=== PATIENT | female | born 1955 | race Caucasian/White ===

== ENCOUNTER 2017-03-20 08:28 | Day surgery (SDC) | payer OTHER ==
[2017-03-19 18:21] VITALS: BMI 31.3
[~2017-03-20 08:28] MED LIST: ACETAMINOPHEN 325 MG TABLET (FP) PO PRN
[2017-03-20] MEDS: PHENYLEPHRINE 2.5% OPHTH SOLN 15 ML BOTTLE OP SCH ×3 (09:00→09:40)
[2017-03-20] MEDS: CYCLOPENTOLATE HCL 1% OPHTH SOLN 2 ML BOTTLE OP SCH ×3 (09:00→09:39)
[2017-03-20] MEDS: TROPICAMIDE 1% OPHTH SOLN 15 ML BOTTLE OP SCH ×3 (09:00→09:40)
[2017-03-20] MEDS: CIPROFLOXACIN HCL 0.3% OPHTH 2.5ML BOTTLE OP SCH ×3 (09:00→09:39)
[2017-03-20] MEDS: FLURBIPROFEN 0.03% OPHTH SOLN 2.5 ML BOTTLE OP SCH ×3 (09:00→09:40)
[2017-03-20 09:04] VITALS: TEMP 98
[2017-03-20] MEDS ORDERED: PHENYLEPHRINE 2.5% OPHTH SOLN 15 ML BOTTLE ONE (09:11)
[2017-03-20] MEDS ORDERED: CYCLOPENTOLATE HCL 1% OPHTH SOLN 2 ML BOTTLE ONE (09:11)
[2017-03-20] MEDS ORDERED: CIPROFLOXACIN 0.3% EYE DROPS 5 ML BOTTLE ONE (09:11)
[2017-03-20] MEDS ORDERED: FLURBIPROFEN 0.03% OPHTH SOLN 2.5 ML BOTTLE ONE (09:11)
[2017-03-20] MEDS ORDERED: TROPICAMIDE 1% OPHTH SOLN 15 ML BOTTLE ONE (09:11)
[2017-03-20] MEDS ORDERED: MIDAZOLAM HCL 2 MG/2 ML SINGLE DOSE VIAL ONE (09:28)
[2017-03-20] MEDS ORDERED: EPINEPHrine/PF 1 MG/1 ML (1:1,000) AMPULE ONE (09:30)
[2017-03-20] MEDS ORDERED: LIDOCAINE HCL 2% JELLY (5 ML/TUBE) ONE (09:31)
[2017-03-20] MEDS ORDERED: BUPIVACAINE HCL/PF 0.75% 10 ML VIAL ONE (09:31)
[2017-03-20] MEDS ORDERED: LIDOCAINE HCL/PF 2% SDV 5ML VIAL ONE ×2 (09:31→09:48)
[2017-03-20] MEDS ORDERED: PROPOFOL 20 ML ONE (09:48)
[2017-03-20] MEDS ORDERED: LIDOCAINE HCL/PF 2% SDV 5ML VIAL INF ONE ×2 (09:49→09:50)
[2017-03-20] MEDS ORDERED: BUPIVACAINE HCL/PF 0.75% 10 ML VIAL RB ONE (09:49)
[2017-03-20] MEDS ORDERED: BUPIVACAINE HCL/PF 0.75% 10 ML VIAL PNB ONE (09:50)
[2017-03-20] MEDS ORDERED: LIDOCAINE HCL 1% PRESERVATIVE FREE - 30ML VIAL IO ONE (10:01)
[2017-03-20] MEDS ORDERED: CHONDROITIN SU A/HYALUR SOD 1 KIT IO ONE (10:02)
[2017-03-20] MEDS ORDERED: MANNITOL 25% 12.5 GM/50 ML VIAL IVPB ONE (10:04)
[2017-03-20 11:51] VITALS: BP 138/93; PULSE 53
--- NOTE | 2017-03-20 12:33 | SPEC ---
DATE OF OPERATION: 03/20/2017 PREOPERATIVE DIAGNOSIS: Cataract, left eye. POSTOPERATIVE DIAGNOSIS: Cataract, left eye. OPERATION: Phacoemulsification of left cataract with posterior chamber intraocular lens implantation. Lens used SN60AT, 21.5 Diopter power, Serial No. [id number]. SURGEON: Roge Peter M.D. ANESTHESIA: Peribulbar/Modified Van Lint/MAC. COMPLICATIONS: None. PROCEDURE: The patient was brought to the operating room and correctly identified along with the operative site and a correct intraocular lens patterson. The patient was then given a peribulbar block under sedation with 5 mL of a 1:1 mixture of 2% Lidocaine and 0.5% Bupivacaine. Two to 3 mL of the same mixture was given as a modified Van Lint block. The eye was then prepped and draped in the usual sterile fashion including 5% Betadine solution in the conjunctival sac and an eyelid drape. An eyelid speculum was then placed into the eye. A paracentesis port was created. Viscoelastic was injected to inflate the anterior chamber. A temporal clear corneal wound was created. A continuous circular capsulorrhexis was performed. The nucleus was then hydro-dissected and removed phacoemulsification via the [id number] approach. The remaining cortical material was irrigated and aspirated from the eye. Viscoelastic was injected to inflate the capsular bag. The lens was injected into the capsular bag. Viscoelastic was then irrigated and aspirated from the eye. The intraocular lens was noted to be well centered and covered by the anterior capsular border. All wounds were found to be watertight. Topical Vancomycin was given. The eye patch and shield were placed. The patient was discharged from the operating room in stable condition. Rebeca [id number]
== END 2017-03-20 11:58 | disposition home or self-care (01) ==
LOC: JASU-SURG 08:28
PROVIDERS: ATTEND Ophthalmology
PROC: 08RK3JZ Replacement of Left Lens with Synthetic Substitute, Percutaneous Approach (ICD-10-PCS; principal; 2017-03-20 10:00)
DX: H26.9 Unspecified cataract (principal)

== ENCOUNTER 2017-03-31 08:22 | Emergency (ER) | payer OTHER ==
[2017-03-31 08:27] VITALS: BP 155/98; PULSE 83; TEMP 98.4; BMI 31.3
--- NOTE | 2017-03-31 09:49 | PDOC ---
History of Present Illness - General Chief Complaint: Sore Throat Stated Complaint: THROAT PAIN Time Seen by Provider: 03/31/17 09:14 History Source: Patient Exam Limitations: No Limitations - History of Present Illness Initial Comments: 03/31/17 10:34 Chief complaint: Sore throat and asthma Patient is 62-year-old female with a history of hypothyroid and asthma who states that for 2 days she has a sore throat, difficulty swallowing, and her asthma has been bothering her a little bit. No history of diabetes and is nonsmoker. Patient has not been using any asthma medication as she has none and has not had a problem in quite a while. No shortness of breath or fever. Patient is able to eat and drink, but is painful GENERAL/CONSTITUTIONAL: No fever, weakness. dizziness HEAD, EYES, EARS, NOSE AND THROAT: No change in vision. No ear pain or discharge. +sore throat. CARDIOVASCULAR: No chest pain RESPIRATORY: No shortness of breath or cough, + wheezing GASTROINTESTINAL: No pain, nausea, vomiting, diarrhea or constipation GENITOURINARY: No dysuria MUSCULOSKELETAL: No neck or back pain SKIN: No rash NEUROLOGIC: No headache, vertigo, loss of consciousness, or loss of sensation. GENERAL: The patient is awake, alert, and fully oriented, in no acute distress. HEAD: Normal with no signs of trauma. EYES: Pupils equal, round and reactive to light, sclera anicteric, conjunctiva clear. ENT: pharynx: +erythema, no exudate, uvula midline, voice normal NECK: supple CHEST: Scant intermittent wheeze, no respiratory distress, speaks in full sentences, nontender, rr ABD: soft, nontender EXTREMITIES: Normal range of motion, no edema. NEUROLOGICAL: Normal speech, normal gait. SKIN: Warm, Dry Past History - Past Medical History Allergies/Adverse Reactions: Allergies Allergy/AdvReac Type Severity Reaction Status Date / Time No Known Allergies Allergy Verified 03/31/17 08:27 Home Medications: Ambulatory Orders Levothyroxine [Synthroid -] 75 mcg PO DAILY 10/16/16 Omeprazole 40 mg PO DAILY 10/16/16 Cholecalciferol (Vitamin D3) [Vitamin D3] 400 unit PO DAILY 03/19/17 Ibuprofen 800 mg PO PRN PRN 03/19/17 Albuterol Sulfate Inhaler - [Ventolin HFA Inhaler -] 2 inh PO Q6H #1 inh Amoxicillin - [Amoxicillin 875mg Tablet -] 875 mg PO BID #20 tablet 03/31/17 Asthma: Yes GI Disorders: Yes (GASTRITIS) Thyroid Disease: Yes - Surgical History Abdominal Surgery: Yes (tummy tuck) - Immunization History Immunization Up to Date: Yes - Psycho/Social/Smoking Cessation Hx Anxiety: No Suicidal Ideation: No Smoking Status: No Smoking History: Never smoked Have you smoked in the past 12 months: No Number of Cigarettes Smoked Daily: 0 Hx Alcohol Use: No Drug/Substance Use Hx: No Substance Use Type: None Hx Substance Use Treatment: No *Physical Exam - Vital Signs Last Vital Signs Temp Pulse Resp BP Pulse Ox 98.4 F 83 20 155/98 97 03/31/17 08:25 03/31/17 08:25 03/31/17 08:25 03/31/17 08:25 03/31/17 08:25 Medical Decision Making - Medical Decision Making 03/31/17 10:50 Patient with 2 days of sore throat with erythema to the throat area, no signs of abscess, able to eat injuring can has normal voice but painful to swallow. Also with scant wheeze on and off. Patient in no respiratory distress no fever. Patient will be prescribed albuterol for the wheezing, no indication to start on steroids. And will be given amoxicillin given the clinical findings to the throat, and patient's age. No other signs to indicate this is related to ALLERGIES. Discussed issues, findings, results, applicable medications and treatments and follow-up. All these were understood and all questions were answered *DC/Admit/Observation/Transfer Diagnosis at time of Disposition: Pharyngitis Qualifiers: Pharyngitis/tonsillitis etiology: unspecified etiology Qualified Code(s): J02.9 - Acute pharyngitis, unspecified Asthma Qualifiers: Asthma severity: unspecified severity Asthma complication type: uncomplicated Qualified Code(s): J45.909 - Unspecified asthma, uncomplicated - Discharge Dispostion Disposition: HOME Condition at time of disposition: Stable - Prescriptions Prescriptions: Amoxicillin - [Amoxicillin 875mg Tablet -] 875 mg PO BID #20 tablet Albuterol Sulfate Inhaler - [Ventolin HFA Inhaler -] 2 inh PO Q6H #1 inh - Patient Instructions Printed Discharge Instructions: Sore Throat, DI for Asthma -- Adult Additional Instructions: Drink 2-3 L of water daily take the amoxicillin one tablet every 12 hours for 10 days use the albuterol inhaler 2 puffs 4 times daily as needed Take Tylenol 650 mg every 4 hours for fever and pain Return to the nearest ER if short of breath, unable to swallow or feeling sicker Followup with your doctor in one to 2 days
== END 2017-03-31 09:58 | disposition home or self-care (01) ==
LOC: JERFT 08:22
DX: J02.9 Acute pharyngitis, unspecified (principal); J45.909 Unspecified asthma, uncomplicated; E03.9 Hypothyroidism, unspecified
CPT/HCPCS: 99281-25

== ENCOUNTER 2017-04-24 06:26 | Day surgery (SDC) | payer OTHER ==
[2017-04-22 15:06] VITALS: BMI 31.3
[2017-04-24 06:55] VITALS: TEMP 98
[2017-04-24] MEDS: FLURBIPROFEN 0.03% OPHTH SOLN 2.5 ML BOTTLE ONE ×3 (07:00→07:10)
[2017-04-24] MEDS: TROPICAMIDE 1% OPHTH SOLN 15 ML BOTTLE ONE ×3 (07:00→07:10)
[2017-04-24] MEDS: CIPROFLOXACIN 0.3% EYE DROPS 5 ML BOTTLE ONE ×3 (07:00→07:10)
[2017-04-24] MEDS: CYCLOPENTOLATE HCL 1% OPHTH SOLN 2 ML BOTTLE ONE ×3 (07:00→07:10)
[2017-04-24] MEDS: PHENYLEPHRINE 2.5% OPHTH SOLN 15 ML BOTTLE ONE ×3 (07:00→07:10)
[2017-04-24] MEDS ORDERED: MIDAZOLAM HCL 2 MG/2 ML SINGLE DOSE VIAL ONE (08:31)
[2017-04-24] MEDS ORDERED: BUPIVACAINE HCL/PF 0.75% 10 ML VIAL PNB ONE (08:39)
[2017-04-24] MEDS ORDERED: LIDOCAINE HCL/PF 2% SDV 5ML VIAL PNB ONE (08:39)
[2017-04-24] MEDS ORDERED: KETAMINE HCL 200 MG/20 ML VIAL ONE (08:50)
[2017-04-24] MEDS ORDERED: LIDOCAINE HCL 1% PRESERVATIVE FREE - 30ML VIAL IO ONE (08:50)
[2017-04-24] MEDS ORDERED: CHONDROITIN SU A/HYALUR SOD 1 KIT IO ONE (08:51)
[2017-04-24 10:03] VITALS: BP 130/76; PULSE 56
--- NOTE | 2017-04-24 14:22 | SPEC ---
DATE OF OPERATION: 04/24/2017 OPERATION: Phacoemulsification of right cataract with posterior chamber intraocular lens implantation. Lens used [id number], 22.5 diopter power, serial No. [id number]. PREOPERATIVE DIAGNOSIS: Cataract, right eye. POSTOPERATIVE DIAGNOSIS: Cataract, right eye. SURGEON: Melissa Etienne M.D. ANESTHESIA: Peribulbar/modified van Lint/MAC. COMPLICATIONS: None. PROCEDURE: The patient was brought to the operating room and correctly identified along with the operative site and a correct intraocular lens patterson. The patient was then given a peribulbar block under sedation with 5 mL of a 1:1 mixture of 2% lidocaine and 0.5% bupivacaine. Two to 3 mL of the same mixture was given as a modified van Lint block. The eye was then prepped and draped in the usual sterile fashion including 5% Betadine solution in the conjunctival sac and an eyelid drape. An eyelid speculum was then placed into the eye. A paracentesis port was created. Viscoelastic was injected to inflate the anterior chamber. A temporal clear corneal wound was created. A continuous circular capsulorrhexis was performed. The nucleus was then hydro-dissected and removed phacoemulsification via the [id number] approach. The remaining cortical material was irrigated and aspirated from the eye. Viscoelastic was injected to inflate the capsular bag. The lens was injected into the capsular bag. Viscoelastic was then irrigated and aspirated from the eye. The intraocular lens was noted to be well centered and covered by the anterior capsular border. All wounds were found to be watertight. Topical vancomycin was given. The eye patch and shield were placed. The patient was discharged from the operating room in stable condition. MELISSA ETIENNE M.D. [id number]
== END 2017-04-24 10:15 | disposition home or self-care (01) ==
LOC: JASU-SURG 06:26
PROVIDERS: ATTEND Ophthalmology
PROC: 08RJ3JZ Replacement of Right Lens with Synthetic Substitute, Percutaneous Approach (ICD-10-PCS; principal; 2017-04-24 08:00)
DX: H26.9 Unspecified cataract (principal)

== ENCOUNTER 2018-08-09 15:12 | Emergency (ER) | payer OTHER ==
[2018-08-09 15:27] VITALS: TEMP 98.3; BMI 29.6
--- NOTE | 2018-08-09 16:03 | PDOC ---
Attending Attestation - Resident Resident Name: Manny Mace - ED Attending Attestation I have performed the following: I have examined & evaluated the patient, The case was reviewed & discussed with the resident, I agree w/resident's findings & plan, Exceptions are as noted - HPI HPI: 08/09/18 15:59 Ms Mondragon Is a 63-year-old female with a history of hypertension who presents emergency department with a complaint of elevated blood pressure. She denies headache at this point but does have a history of chronic headaches. She denies chest pain. She denies shortness of breath. She denies palpitations. - Physicial Exam PE: 08/09/18 16:01 GENERAL: The patient is in no acute distress. LUNGS: Breath sounds equal, clear to auscultation bilaterally. No wheezes, and no crackles. HEART:Regular rate and rhythm, normal S1 and S2 without murmur, rub or gallop. ABDOMEN: Soft, nontender, normoactive bowel sounds. No guarding, no rebound. No masses palpable. EXTREMITIES: Normal range of motion, no edema. NEUROLOGICAL: Cranial nerves II through XII grossly intact. Normal speech. No focal neurological deficits. MUSCULOSKELETAL: Back non-tender to palpation SKIN: Warm, Dry, normal turgor, no rashes or lesions noted. - Medical Decision Making 08/09/18 16:02 Patient presents emergency department with no complaints and was concerned about her blood pressure. In the emergency department patient's blood pressure is normal. She has a follow-up appointment with her primary care physician on Saturday ((2 days from now) disease. Will plan to discharge home. Patient is anxious to go. Return to the ER for any other concerns or complaints
--- NOTE | 2018-08-09 16:03 | PDOC ---
History of Present Illness - General Chief Complaint: Blood Pressure Problem Stated Complaint: BLOOD PREESSURE CHECK Time Seen by Provider: 08/09/18 15:37 History Source: Patient Exam Limitations: Language Barrier (phone payroll bookkeeper used) - History of Present Illness Initial Comments: 08/09/18 15:54 Patient is a 63F with history of HTN, gastritis, and hypothyroidism here today complaining of headache and high blood pressure. Patient states that she took her blood pressure at home and it was 150/100 on her home machine. She states that she does not take anything for her high blood pressure. She describes her headache as a chronic headache over the past few years that is in the front of her head without radiation. Denies vision changes and sound sensitivity. Says that her headache is "slight" right now and does not want any pain medication for it. No vertigo, limb weakness, facial droop, slurred speech. No trauma. Past History - Past Medical History Allergies/Adverse Reactions: Allergies Allergy/AdvReac Type Severity Reaction Status Date / Time No Known Allergies Allergy Verified 08/09/18 15:23 Home Medications: Ambulatory Orders Levothyroxine [Synthroid -] 75 mcg PO DAILY 10/16/16 Omeprazole 40 mg PO DAILY 10/16/16 Albuterol Sulfate Inhaler - [Ventolin HFA Inhaler -] 2 inh PO Q6H #1 inh Asthma: Yes COPD: No GI Disorders: Yes (GASTRITIS) Thyroid Disease: Yes - Surgical History Abdominal Surgery: Yes (tummy tuck) - Immunization History Immunization Up to Date: Yes - Suicide/Smoking/Psychosocial Hx Smoking Status: No Smoking History: Never smoked Have you smoked in the past 12 months: No Number of Cigarettes Smoked Daily: 0 Information on smoking cessation initiated: No Hx Alcohol Use: No Drug/Substance Use Hx: No Substance Use Type: None Hx Substance Use Treatment: No Review of Systems - Review of Systems Comments:: 08/09/18 15:57 GENERAL/CONSTITUTIONAL: No fever or chills. No weakness. HEAD, EYES, EARS, NOSE AND THROAT: No change in vision. No ear pain or discharge. No sore throat. CARDIOVASCULAR: No chest pain or shortness of breath RESPIRATORY: No cough, wheezing, or hemoptysis. GASTROINTESTINAL: No nausea, vomiting, diarrhea or constipation. GENITOURINARY: No dysuria, frequency, or change in urination. MUSCULOSKELETAL: No joint or muscle swelling or pain. No neck or back pain. SKIN: No rash NEUROLOGIC: +headache, no vertigo, loss of consciousness, or change in strength/ sensation. ENDOCRINE: No increased thirst. No abnormal weight change HEMATOLOGIC/LYMPHATIC: No anemia, easy bleeding, or history of blood clots. ALLERGIC/IMMUNOLOGIC: No hives or skin allergy. *Physical Exam - Vital Signs Last Vital Signs Temp Pulse Resp BP Pulse Ox 98.3 F 72 18 132/84 100 08/09/18 15:25 08/09/18 15:25 08/09/18 15:25 08/09/18 15:25 08/09/18 15:25 - Physical Exam Comments: 08/09/18 15:58 ENERAL: Awake, alert, and fully oriented, in no acute distress HEAD: No signs of trauma, normocephalic, atraumatic EYES: PERRLA, EOMI, sclera anicteric, conjunctiva clear ENT: Auricles normal inspection, hearing grossly normal, nares patent, oropharynx clear without exudates. Moist mucosa NECK: Normal ROM, supple, no lymphadenopathy, JVD, or masses LUNGS: No distress, speaks full sentences, clear to auscultation bilaterally HEART: Regular rate and rhythm, normal S1 and S2, no murmurs, rubs or gallops, peripheral pulses normal and equal bilaterally. ABDOMEN: Soft, nontender, normoactive bowel sounds. No guarding, no rebound. No masses EXTREMITIES: Normal inspection, Normal range of motion, no edema. No clubbing or cyanosis. NEUROLOGICAL: Cranial nerves II through XII grossly intact. Normal speech, normal gait, no focal sensorimotor deficits, normal cerebellar function SKIN: Warm, Dry, normal turgor, no rashes or lesions noted. Medical Decision Making - Medical Decision Making 08/09/18 15:58 Patient is a 63F with history of HTN, gastritis, and hypothyroidism here today with headache. Vitals show normal blood pressure, no history to suggest head bleed or stroke. Patient has PCP follow up scheduled for Saturday, will allow PCP to start HTN therapy. Will discharge home with instructions to follow up with PCP. *DC/Admit/Observation/Transfer Diagnosis at time of Disposition: Headache - Discharge Dispostion Disposition: HOME Condition at time of disposition: Good Decision to Admit order: No - Referrals - Patient Instructions Printed Discharge Instructions: DI for High Blood Pressure, How to Monitor Your Blood Pressure at Home Additional Instructions: Please return if you have any new, worsening or concerning symptoms, especially worsening pain, fever, and vomiting. Please follow up with your PCP on Saturday as scheduled. - Post Discharge Activity
[2018-08-09 16:08] VITALS: BP 124/94; PULSE 81
== END 2018-08-09 16:37 | disposition home or self-care (01) ==
LOC: JER 15:12
DX: I10 Essential (primary) hypertension (principal); E03.9 Hypothyroidism, unspecified; K29.70 Gastritis, unspecified, without bleeding
CPT/HCPCS: 99282-25